=== PATIENT | female | born 1990 | race Caucasian/White ===

== ENCOUNTER 2020-05-23 20:22 | Emergency (ER) | payer BC ==
[~2020-05-23] VITALS: Ht 149.9 cm; Wt 75.7 kg
[2020-05-23] MEDS ORDERED: DIPHENHYDRAMINE HCL 25 MG CAP PO ONE (20:45)
[2020-05-23] MEDS: KETOROLAC TROMETHAMINE 30 MG/ML VIAL IV STA (20:49)
[2020-05-23] MEDS: METOCLOPRAMIDE HCL 10 MG/2ML VIAL IV ONE (20:49)
[2020-05-23] MEDS: SODIUM CHLORIDE 0.9% 1000ML 1,000 ML IV SCH (20:49)
[2020-05-23] MEDS ORDERED: SODIUM CHLORIDE 0.9% 1000ML 1,000 ML ONE (20:50)
[2020-05-23] MEDS: DIPHENHYDRAMINE HCL INJ 50 MG/ML VIAL IV PRN (20:56)
[2020-05-23 21:55] VITALS: BP 134/76
== END 2020-05-23 21:56 | disposition home or self-care (01) ==
LOC: ER 21:34
DX: G43.909 Migraine, unspecified, not intractable, without status migrainosus (principal); Z88.2 Allergy status to sulfonamides; Z88.8 Allergy status to other drugs, medicaments and biological substances; Z88.6 Allergy status to analgesic agent; Z91.040 Latex allergy status
CPT/HCPCS: 99282; J1200; J1885; J2765; J7030